=== PATIENT | male | born 1995 | race Caucasian/White ===

== ENCOUNTER 2020-06-15 10:14 | Emergency (ER) | payer BC, SELFPAY ==
[2020-06-15 10:26] VITALS: BP 138/68; PULSE 78; RESP 16; TEMP 36.4; O2SAT 100
--- NOTE | 2020-06-15 10:41 | ED.GENADULT ---
HPI - General Adult General Chief complaint: Urogenital-Male Stated complaint: UTI Time Seen by Provider: 06/15/20 10:42 Source: patient Mode of arrival: ambulatory Limitations: no limitations History of Present Illness HPI narrative: 24-year-old male patient presents to the [facility] with complaints of urinary symptoms x 4 days. Patient states that he was diagnosed with a UTI at [facility] on 1220 and was given Bactrim for 3 days. Patient states that his symptoms went away however they returned about 4 days ago. Patient complains of burning with urination, and urgency and frequency. Patient states he does not have any concerns for STDs because he is in a monogamous relationship and they do use condoms at times. Patient denies any fevers, body aches or chills. Denies any nausea, vomiting or diarrhea. Denies any low back pain or abdominal pain. Patient states at times he does have pain to the testicles but it is not constant. Related Data Allergies Allergy/AdvReac Type Severity Reaction Status Date / Time No Known Allergies Allergy Mild Verified 06/15/20 10:41 Review of Systems Review of Systems: Narrative: CONSTITUTIONAL: Denies fever, chills, or sweats. EYES: Denies visual changes, redness, or discharge. ENT: Denies rhinorrhea, congestion, sore throat, or otalgia. CARDIOVASCULAR: Denies chest pain, palpitations, or edema. RESPIRATORY: Denies cough or dyspnea. GASTROINTESTINAL: Denies abdominal pain, nausea, vomiting, or diarrhea. GENITOURINARY: Positive dysuria, denies hematuria. Positive urgency and frequency x4 days SKIN: Denies rash or itching. MUSCULOSKELETAL: Denies back pain, joint pain, or myalgia. NEUROLOGIC: Denies headache, numbness, or weakness. PSYCHIATRIC: Denies anxiety or depression. [facility] Past Medical History Medical History (Updated 06/15/20 @ 10:53 by SHANE Babin) Epilepsy Surgical History Surgical History (Updated 06/15/20 @ 10:42 by SHANE Babin) Hx of tonsillectomy Social History Social History Gender identity (if verbalized by the patient): Male Comments At the time of my signature I agree with nursing past medical history, surgical, social, and family history. There is no relevant family history pertinent to the presenting complaint. Exam Narrative: Exam Narrative: GENERAL: Well-appearing, well-nourished, and in no acute distress. HEAD: Normocephalic, atraumatic. EYES: PERRLA and EOMI. ENT: Nares clear, no rhinorrhea or epistaxis. Mucous membranes moist. NECK: Supple. No lymphadenopathy CHEST: Clear to auscultation. No respiratory distress. HEART: Regular rate and rhythm. No murmur heard. Normal peripheral pulses. ABDOMEN: Soft, nontender, nondistended, normal active bowel sounds. No CVA tenderness on percussion. EXTREMITIES: Normal range of motion. No edema. SKIN: Warm, dry, no rash. NEURO: No focal deficits. Alert and oriented x3. Course Vital Signs Vital signs: Vital Signs Temperature 36.4 C 06/15/20 10:26 Pulse Rate 78 06/15/20 10:26 Respiratory Rate 16 06/15/20 10:26 Blood Pressure 138/68 06/15/20 10:26 Pulse Oximetry 100 06/15/20 10:26 Temperature 36.4 C 06/15/20 10:26 Pulse Rate 78 06/15/20 10:26 Respiratory Rate 16 06/15/20 10:26 Blood Pressure 138/68 06/15/20 10:26 Pulse Oximetry 100 06/15/20 10:26 Vital signs reviewed The patient has been informed that they may have pre-hypertension or Hypertension based on a BP reading in the department. I recommend that the patient call the primary care provider listed on their discharge instructions or a physician of their choice this week to arrange follow up for further evaluation of possible pre-hypertension or Hypertension Medical Decision Making Differential Diagnosis Differential Diagnosis: Differential diagnosis: Uncomplicated lower UTI, uncomplicated UTI, polynephritis, penile trauma,balanopo
== END 2020-06-15 11:08 | disposition home or self-care (01) ==
PROVIDERS: Emergency Provider Nurse Practitioner Family; PCP Internal Medicine
DX: R30.0 Dysuria (principal)
CPT/HCPCS: 81003; 87086; 99213; G0463

== ENCOUNTER → 2020-12-06 13:46 | Outpatient (CLI) | payer BC, SELFPAY ==
--- NOTE | ~2020-12-06 | CT_ITS ---
EXAMINATION: CT abdomen pelvis wo con DATE: 12/06/2020 14:01 INDICATION: Chronic prostatitis. Urinary frequency. TECHNIQUE: Computed tomography (CT) of the abdomen and pelvis was performed without intravenous contr ast. Automated exposure control and iterative reconstruction technique were employed. The dose-length product was 403.65 mGy-cm. COMPARISON: None. FINDINGS: The visualized portions of the lung bases are clear without pneumonia or pleural effusion. The heart size is normal. No pericardial effusion. The gallbladder, spleen, pancreas, adrenal glands are normal. There is a 2 mm stone in right kidney. There is an anastomosis in the sigmoid colon. Ther e are no dilated loops of bowel. The appendix is normal. There are no pathologically enlarged lymph n odes. There is no free intraperitoneal fluid. The prostate is mildly enlarged. There is a benign bone island in right ilium. IMPRESSION: 1. Mildly enlarged prostate. Reviewed, dictated and finalized at location A.
== END ==
PROVIDERS: Visit Provider Urology
DX: N41.1 Chronic prostatitis (principal)
CPT/HCPCS: 74176

== ENCOUNTER 2021-03-04 15:00 | Emergency (ER) | payer BC, SELFPAY ==
[2021-03-04 15:18] VITALS: BP 135/71; PULSE 58; RESP 16; TEMP 36.4; O2SAT 100
--- NOTE | 2021-03-04 15:59 | ED.MALEGU ---
HPI - Male Genitourinary General Chief complaint: Urogenital-Male Stated complaint: POS UTI Source: patient and RN notes reviewed Limitations: no limitations History of Present Illness HPI Narrative: The patient, followed by urology in the past, presents with urinary symptoms. 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 He finished a course of antibiotics and felt fine for couple days but now has 1/2-week history of typical urinary frequency and dysuria. Denies discharge, rash, urgency; he would like STD testing as he does not recall prior results[and believes onset may have occurred with anal intercourse with his spouse a year ago]. Next steps planned by urology include cystoscopy and symptomatic treatment with Flomax, etc. Patient advised to follow-up with urology Related Data Allergies Allergy/AdvReac Type Severity Reaction Status Date / Time amoxicillin AdvReac Nausea Verified 03/04/21 15:44 Review of Systems Review of Systems: General/Constitutional: No weight loss,fever Eyes: N0: Redness,discharge Ears/Nose/Throat: No: Epistaxis,ear discharge Respiratory: Denies: Hemoptysis Gastrointestinal: No Vomiting, Bleeding-rectal Skin: No Lumps, eruption Neurologic: No Focal Weakness,Sz Hematologic: Denies: Petechiae/Purpura Psychiatric: No: Suicida ideationl All Other Systems: Reviewed and Negative [facility] Past Medical History Medical History (Updated 03/06/21 @ 11:03 by Harry Berrios MD) Epilepsy Surgical History Surgical History (Updated 06/15/20 @ 10:42 by SHANE Babin) Hx of tonsillectomy Social History Social History (Updated 01/17/21 @ 14:36 by Sandi Zaidi) Smoking status: Never smoker Alcohol intake: never Substance use: never Gender identity (if verbalized by the patient): Male Comments At time of signature, agree with nursing past medical, surgical, social and family history. There is no relevant family history pertinent to the presenting complaint Exam Narrative: General Appearance: Well appearing, Conjunctiva clear Mouth/Throat: Normal appearing, Normal lips, Supple Respiratory: Airway patent, No respiratory distress Cardiovascular: RRR GI-: Soft, Non-tender, bilateral descended testicles, no inguinal hernia, circumcised phallus Musculoskeletal: Full ROM Skin: Warm, Dry Neurological: A&O x3, CN II-X intact Psychiatric: Normal mood, Normal affect Course Vital Signs Vital signs: Vital Signs Temperature 97.5 F L 03/04/21 15:18 Pulse Rate 58 L 03/04/21 15:18 Respiratory Rate 16 03/04/21 15:18 Blood Pressure 135/71 03/04/21 15:18 Pulse Oximetry 100 03/04/21 15:18 Temperature 97.5 F L 03/04/21 15:18 Pulse Rate 58 L 03/04/21 15:18 Respiratory Rate 16 03/04/21 15:18 Blood Pressure 135/71 03/04/21 15:18 Pulse Oximetry 100 03/04/21 15:18 MDM - Male Genitourinary Lab Data Labs: Lab Results 03/04/21 03/04/21 Range/Units 15:36 15:37 C.trachomatis RNA (TMA) Pending N.gonorrhoeae RNA (TMA) Pending T. vaginalis Amp RNA Pending Urine Glucose Negative Reference Range: Negative Urine Bilirubin Negative Reference Range: Negative Urine Ketone Negative Reference Range: Negative Urine Specific [place] 1.015 Reference Range:1.001-1.035 Urine Blood Negative Reference Range: Negative * * Urine pH 7.0
== END 2021-03-04 16:08 | disposition home or self-care (01) ==
PROVIDERS: Emergency Provider Emergency Medicine; PCP Internal Medicine
DX: R30.0 Dysuria (principal); R35.0 Frequency of micturition
CPT/HCPCS: 81003; 87491; 87591; 87661; 99213; G0463

== ENCOUNTER 2021-12-01 15:29 | Emergency (ER) | payer BC, SELFPAY ==
--- NOTE | 2021-12-01 15:32 | ED.MALEGU ---
HPI - Male Genitourinary General Chief complaint: Urogenital-Male Stated complaint: PENIS PAIN/SWELLING/ITCHING Time Seen by Provider: 12/01/21 15:31 Source: patient Mode of arrival: ambulatory Limitations: no limitations History of Present Illness HPI Narrative: Mr. Levy is a 26-year-old male patient presenting to the clinic today with complaints of penis swelling, itching, pain with urination. He reports 2 days ago he was masturbating and was unable to reach climax and his penis became very swollen. States that some of that swelling has gone down however he has had some itching and burning with urination since. States that 5 months ago he had to be put on doxycycline for what he thought was prostatitis per his urologist he denies having any new sexual partners and has not had intercourse for approximately 2 months due to his being out of town for work. He denies any penile discharge or any known blood in his semen . He denies any rectal pain, fatigue, fevers, chills, nausea, vomiting, or diarrhea. States he is have been having a hard time voiding as it feels as though he has an erected penis. Related Data Home Medications Medication Instructions Recorded Confirmed fluoxetine 40 mg capsule 1 cap PO DAILY 12/01/21 12/01/21 Allergies Allergy/AdvReac Type Severity Reaction Status Date / Time amoxicillin AdvReac Nausea Verified 12/01/21 15:35 Review of Systems Review of Systems: Pertinent positives per HPI. Patient denies any fever, chills, headache, visual changes, dizziness, cough, runny nose, sore throat, shortness of breath, chest pain, palpitations, nausea, vomiting, diarrhea, constipation, abdominal pain. [facility] Past Medical History Medical History Epilepsy Surgical History Surgical History Hx of tonsillectomy Social History Social History Smoking status: Never smoker Alcohol intake: never Substance use: never Gender identity (if verbalized by the patient): Male Comments At the time of my signature, I reviewed and agree with the nursing past medical, surgical, social, and family history. There is no relevant family history pertinent to the patient complaint. Exam Narrative: General: Well-developed, well nourished, in no apparent distress. Head: Normocephalic, atraumatic. Cardio: Regular rate and rhythm, s1 and s2 normal, no murmur appreciated. Resp: Clear to auscultation bilaterally, no rhonchi, rales, wheezing or rubs. Abdomen: Soft, pliable, bowel sounds present in all quadrants, non-tender to palpation, no organomegly, no CVAT tenderness. : Normal-appearing genitalia, no lesions or sores noted, nontender to palpation over the phallus however he does have tenderness to palpation over the glans penis near the urethra, nontender to palpation over the epididymitis or testicles, no testicular mass palpable. No inguinal hernia, mild redness to the opening of the urethra without discharge Course Course Emergency Course: Portions of this record may have been created with voice recognition software. Level of Care: Express Care Visit Vital Signs Vital signs: Vital Signs Temperature 37.3 C 12/01/21 15:35 Pulse Rate 71 12/01/21 15:35 Respiratory Rate 12 12/01/21 15:35 Blood Pressure 135/77 12/01/21 15:35 Pulse Oximetry 100 12/01/21 15:35 Oxygen Delivery Room Air 12/01/21 15:35 Temperature 37.3 C 12/01/21 15:35 Pulse Rate 71 12/01/21 15:35 Respiratory Rate 12 12/01/21 15:35 Blood Pressure 135/77 12/01/21 15:35 Pulse Oximetry 100 12/01/21 15:35 Oxygen Delivery Room Air 12/01/21 15:35 Vital signs reviewed MDM - Male Genitourinary MDM Narrative Medical decision making narrative: At the time of visit patient is resting comfortably on the exam table. UA i
[2021-12-01 15:35] VITALS: BP 135/77; PULSE 71; RESP 12; TEMP 37.3; O2SAT 100
== END 2021-12-01 16:10 | disposition home or self-care (01) ==
PROVIDERS: Emergency Provider Nurse Practitioner Family; PCP Internal Medicine
DX: N34.2 Other urethritis (principal)
CPT/HCPCS: 81003; 87491; 87591; 87661; 99213; G0463

== ENCOUNTER 2022-07-09 15:45 | Outpatient (CLI) | payer BC, SELFPAY ==
[2022-07-09 15:57] LABS: Basophils Percent Auto 0.3 % (0.2-1.2); Eosinophils Absolute Auto 0.1 K/mm3 (0-0.3); Eosinophils Percent Auto 1.6 % (0-4.4); Hematocrit 48.7 % (42.0-52.0); Hemoglobin 16.3 g/dL (14.0-18.0); Immature Granulocyte Absolute 0.01 K/mm3 (0.00-0.031); Immature Granulocyte Percent A 0.1 % (0-0.5); Lymphocytes Absolute Auto 1.31 K/mm3 (0.9-3.2); Lymphocytes Percent Auto 17.6 % (18.3-44.2); Mean Corpuscular HGB Conc 33.5 g/dl (32-36); Mean Corpuscular Volume 86.7 fl (80-100); Mean Platelet Volume 11.7 fl (7.4-10.4); Monocytes Percent Auto 12.8 % (2.6-8.5); Neutrophils Percent Auto 67.6 % (45.5-73.1); Platelet Count Result 160 k/mm3 (150-375); Red Blood Count 5.62 M/mm3 (4.6-6.20); Red Cell Distribution Width 11.9 % (11.5-14.5); White Blood Count 7.4 K/mm3 (4.5-10.0)
[2022-07-09 16:38] LABS: Alanine Aminotransferase 38 U/L (6-50); Albumin Level 4.1 g/dL (3.5-5.1); Alkaline Phosphatase 44 U/L (38-126); Anion Gap 3 mmol/L (8-16); Aspartate Amino Transferase 31 U/L (17-59); Bilirubin,Total 0.6 mg/dL (0.2-1.3); Blood Urea Nitrogen 19 mg/dL (9-20); Calcium 9.2 mg/dL (8.4-10.2); Carbon Dioxide 34 mmol/L (22-30); Chloride 100 mmol/L (98-107); Estimated Glomerular Filt Rate > 60; Glucose 97 mg/dL (65-110); Lactate Dehydrogenase 157 U/L (120-246); Potassium 4.1 mmol/L (3.4-5.0); Sodium 137 mmol/L (137-145)
[2022-07-09 17:45] LABS: Folic Acid 11.5 ng/mL (2.76->20)
== END 2022-07-09 15:46 | disposition home or self-care (01) ==
LOC: ANHLAB 15:46
PROVIDERS: PCP Internal Medicine; Visit Provider Internal Medicine Hematology & Oncology
DX: D72.819 Decreased white blood cell count, unspecified (principal)
CPT/HCPCS: 36415; 80053; 82607; 82728; 82746; 83615; 85025; 86038

== ENCOUNTER 2022-08-15 12:28 | Outpatient (CLI) | payer BC, SELFPAY ==
--- NOTE | ~2022-08-15 | US_ITS ---
Abdominal Sonogram: Real-time sonographic imaging of the abdomen was performed. Clinical History: Leukopenia Findings: The liver appears normal with no evidence of mass lesion or bile duct dilatation. Main por basilio vein demonstrates normal direction of flow. The spleen is normal in size without evidence of foca l lesion. The gallbladder is well distended, and appears normal with no evidence of gallstone or wal l thickening. The common bile duct measures 5 mm. The visualized pancreas, aorta, and IVC are unrema rkable. The right kidney measures 10.9 cm in length and the left kidney measures 10.3 cm. There is no hydronephrosis or renal calculus. Impression: Unremarkable abdominal ultrasound. Reviewed, dictated and finalized at location . [employer] CHAIR Impression: Unremarkable abdominal ultrasound.
== END 2022-08-15 12:29 | disposition home or self-care (01) ==
PROVIDERS: PCP Internal Medicine; Visit Provider Internal Medicine Hematology & Oncology
DX: D72.819 Decreased white blood cell count, unspecified (principal)
CPT/HCPCS: 76700

== ENCOUNTER 2023-05-16 09:51 | Emergency (ER) | payer BC, SELFPAY ==
[2023-05-16 10:09] VITALS: BP 138/97; PULSE 83; RESP 16; TEMP 37; O2SAT 100
--- NOTE | 2023-05-16 10:41 | ED.URI ---
HPI - URI/Sore Throat General Chief Complaint: Upper Respiratory Infection Stated Complaint: Sinus Infection;Sore throat Time Seen by Provider: 05/16/23 10:42 Source: patient, RN notes reviewed and old records reviewed Mode of arrival: ambulatory Limitations: no limitations History of Present Illness HPI Narrative: 27 year old male who presents to [facility] with complaints of 2 week duration of a sore throat, cough, sinus congestion with pressure with drainage and now he has lost his voice. Patient reports that he has had thick yellow nasal drainage with some blood noted in drainage. He states that he has some increased cough and has some discomfort with cough which is 6/10, Patient reports that he has taken some Ibuprofen reports no fevers, chills, or bodyaches MD elicited complaint: cough, sore throat, rhinorrhea and nasal congestion Onset (ago): week(s) (2) Consistency: progressively worsening Pain scale (0-10): 6 Description of mucous: yellow and bloody Treatments prior to arrival: ibuprofen Related Data Home Medications Medication Instructions Recorded Confirmed fluoxetine 60 mg tablet mg 05/16/23 Allergies Allergy/AdvReac Type Severity Reaction Status Date / Time amoxicillin AdvReac Nausea Verified 12/01/21 15:35 Review of Systems Review of Systems: CONSTITUTIONAL: Denies malaise, chills, sweats, or fever. EYES: Denies visual changes, redness, or discharge. ENT: Reports rhinorrhea, congestion, sinus pain, no otalgia and positive for sore throat. CARDIOVASCULAR: Denies chest pain, palpitations, or edema. RESPIRATORY: Reports cough.? Denies dyspnea. GASTROINTESTINAL: Denies abdominal pain, nausea, vomiting, diarrhea SKIN: Denies rash or itching. MUSCULOSKELETAL: Denies myalgia. NEUROLOGIC: Denies headache. All systems reviewed & are unremarkable except as noted in HPI and below PMFSH Past Medical History Medical History (Updated 05/18/23 @ 11:41 by Eugenie Casillas NP) Epilepsy resolved as child Surgical History Surgical History Hx of tonsillectomy Social History Social History Smoking status: Never smoker Alcohol intake: never Substance use: never Gender identity (if verbalized by the patient): Male Comments At time of signature, agree with nursing past medical, surgical, social and family history. There is no relevant family history pertinent to the presenting complaint Exam Narrative: GENERAL: Well-appearing, well-nourished, and in no acute distress. HEAD: Normocephalic EYES: PERRLA, conjunctivae clear ENT: Nares clear, turbinates edematous and erythematous, yellow thick with blood tinged discharge. Mucous membranes moist. TM pearly menon with dull light reflex bilaterally; no tragal tenderness. Oropharynx erythematous without lesions. Tonsils not present and throat without exudate, no drooling, no hoarseness, no trismus, uvula midline.post nasal discharge NECK: Supple. No lymphadenopathy CHEST: Clear to auscultation, breath sounds equal. No wheezing, rhonchi, rales, or stridor. No respiratory distress, speaks in full sentences.cough [id number]% on room air HEART: Regular rate and rhythm. No murmur heard. SKIN: Warm, dry, no rash. NEURO: Alert and oriented x3. PSYCH: Normal mood and affect Course Course Emergency Course: Patient is aware of diagnosis, understands and agrees to treatment plan.? Anticipatory guidance given.? Patient agrees to follow-up as directed and is aware of reasons to seek care at the emergency department. Portions of this record may have been created with voice recognition software Level of Care: Express Care Visit Vital Signs Vital signs: Vital Signs Temperature 37.0 C 05/16/23 10:09 Pulse Rate 83 05/16/23 10:09 Respiratory Rate 16 05/16/23 10:09 Blood Pressure 138/97 H 05/16/23 10:09
== END 2023-05-16 11:13 | disposition home or self-care (01) ==
PROVIDERS: Emergency Provider Registered Nurse; PCP Internal Medicine
DX: J01.40 Acute pansinusitis, unspecified (principal); Z20.822 Contact with and (suspected) exposure to COVID-19
CPT/HCPCS: 87081; 87426; 87804; 87880; 99213; C9803; G0463

== ENCOUNTER 2023-08-14 08:46 | Outpatient (CLI) | payer BC, SELFPAY ==
--- NOTE | ~2023-08-14 | MR_ITS ---
EXAMINATION: MR knee LT wo con DATE: 08/14/2023 09:39 INDICATION: Left knee pain TECHNIQUE: Magnetic resonance imaging (MRI) of the left knee was performed without intravenous contra st. Sequences included coronal PD-weighted FSE, coronal PD-weighted FS FSE, sagittal T2-weighted FSE , sagittal PD-weighted FS FSE and axial PD weighted fat saturated FSE. COMPARISON: None. FINDINGS: Medial compartment: Complex medial meniscal tear which includes a displaced bucket-handle flap which extends anteroposter iorly across the medial side of the intercondylar eminence. Additional longitudinal horizontal tear p eileen extending to the inferior articular surface of the the remaining nondisplaced body and posterior horn with additional small secondary tear planes extending to the inferior articular surface at the posterior horn. Articular cartilage is normal. Lateral compartment: Lateral meniscus is normal. Articular cartilage is normal. Patellofemoral compartment: Articular cartilage is normal. Ligaments and tendons: Anterior and posterior cruciate ligaments are normal. The medial collateral ligament and fibular virgie ateral ligament complex are normal. The extensor mechanism is normal. The visualized medial and later al hamstring tendons as well as the iliotibial band are normal. Fluid: Minimal joint effusion with mild synovitis at the suprapatellar pouch. No loose osteochondral bodies identified. Small Escoto's cyst. There is nonloculated edema posterior to the knee tracking craniocaud ally along the periphery of the gastrocnemius muscles, medial greater than lateral. Osseous/other: Normal marrow signal. No fracture or pathologic marrow replacing process. IMPRESSION: 1. Complex medial meniscal tear including a laterally displaced bucket-handle meniscal flap. Reviewed, dictated and finalized at location B. 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 Complex medial meniscal tear including a laterally displaced bucket-handle m eniscal flap.
== END 2023-08-14 08:47 | disposition home or self-care (01) ==
LOC: ANHIMG 08:47
PROVIDERS: PCP Emergency Medicine; Visit Provider Emergency Medicine
DX: S83.232A Complex tear of medial meniscus, current injury, left knee, initial encounter (principal); S83.252A Bucket-handle tear of lateral meniscus, current injury, left knee, initial encounter; X58.XXXA Exposure to other specified factors, initial encounter
CPT/HCPCS: 73721

== ENCOUNTER 2023-09-15 02:00 | Day surgery (SDC) | payer BC, SELFPAY ==
[2023-09-07 11:07] VITALS: BMI 24.7
--- NOTE | 2023-09-07 11:11 | PC.NURSE ---
Report to the Outpatient Waiting Room, entrance under the green pavilion located off [address], at time 1130 on date 09/15/23. Planned Procedure Time: 1330. Time changes happen often and if your time is changed the preop area will call you the afternoon before. - You and your visitor will be asked to self-screen and do not enter if you have any COVID symptoms. - A mask is optional within the hospital at this time. Patients may have clear liquids (water, carbonated beverages, clear teas, apple juice) until 3 hours prior to surgery with a maximum of 20 ounces. - No food from midnight until time of surgery Take the following medications with a SIP of water the morning of surgery: FLUOXETINE DO NOT STOP ANY OF YOUR OTHER PRESCRIPTION MEDICATIONS PRIOR TO SURGERY ?EXCEPT THE FOLLOWING Medications to discontinue per physician: N/A Date to take last dose: N/A Please no make-up, nail tajik, hairspray, perfume, deodorant, or body powder the day of surgery. No jewelry (including any body piercings) or valuables the day of surgery, leave them at home. Please take a shower or bath the night before, or the morning of, surgery with an antibacterial soap. Wear comfortable, loose fitting clothing. - Jewelry must be removed prior to entering the operating room. Rings and piercings that are not removed may be cut off. - The hospital will not accept responsibility for valuables. - Please leave all valuables, including medications, at home the day of surgery. If you are going home after surgery, a licensed driver sales must drive you home. - NO public transportation without another adult if you receive anesthesia. - We recommend that an adult stay with you for 24 hours following discharge. - We also recommend that you do not drive, make important decision, drink alcoholic beverages, or take any drugs that were not prescribed by your health care provider for at least 24 hours after your discharge time. Follow any additional instructions given to you from your surgeon. If you or anyone in your household have experienced Covid symptoms in the past week, please notify your surgeon or the nurse liaison at the phone number below for possible testing. Telephone instructions given to MERARI CRUM and asked if any additional questions and then verbalized understanding. Patient advised to call surgeon office or pre surgery nurse liaison [phone] if any additional questions.
[2023-09-15] VITALS (9 sets, daily range): BP systolic 125–156; BP diastolic 52–92; PULSE 71–103; RESP 10–16; TEMP 36.3–37.2; O2SAT 100
--- NOTE | 2023-09-15 07:21 | WPDHPUPDATE1 ---
History and Physical Update Update Date/Time: 09/15/23 07:21 History and Physical has been reviewed, including an updated exam of the patient. There are NO changes in the patient's condition. Risks, benefits, and alternatives have been discussed and questions answered. Patient agrees to proceed with procedure.
--- NOTE | 2023-09-15 11:56 | P.PNAN_ITS ---
Anes - Initial Pre Proc Eval Procedure: Operation Date: 09/15/23 13:30 Proposed Procedures p Left Knee Arthroscopy, Meniscus Repair Versus Meniscectomy - Chi Orourke MD Date/Time: 09/15/23 11:56 Surgeon: Chi Orourke MD Pre Op Diagnosis: left medial meniscus tear Patient Data Age: 28 Gender: M Height: 1.87 m Weight: 86.2 kg Allergies Allergy/AdvReac Type Severity Reaction Status Date / Time amoxicillin AdvReac Nausea Verified 09/07/23 11:06 Home Medications Medication Instructions Recorded Confirmed Type fluoxetine 60 mg tablet 60 mg PO DAILY 08/05/23 09/07/23 History chlorhexidine gluconate 4 % 1 applic topical DAILY #237 mL 09/08/23 Rx topical liquid (Hibiclens) Patient hx anesthesia problems: none Family hx anesthesia problems: none Results Review: All pre-operative results and documents have been reviewed as part of the pre- operative evaluation. PMFSH Past Medical History Medical History Epilepsy resolved as child Surgical History Surgical History Hx of tonsillectomy Social History Social History Smoking status: Former smoker Tobacco type: cigarettes Additional smoking assessment comments: AGE 19 ONLY Alcohol intake: current Drinks per week: 4 Substance use: never Substance use type: does not use Do You Feel Safe in your Home?: Yes Lack of Transportation: No Lack of Food: Never True Current Housing: I Have Housing Concerned About Future Housing: No Difficulty Paying Gas/Electric Bills: No Difficulty Paying for Meds: No Currently Unemployed: No Education: Associate Degree Difficulty w/ Childcare or Family Care: No Living arrangements: alone Gender identity (if verbalized by the patient): Male Spiritual care concerns: No Anes - Eval Final PreProcedure Day of Procedure 09/15/23 11:56 Patient weight: normal Heart: regular rate and rhythm Lungs: clear to auscultation Airway: Mallampati scale class II Neurological: alert and oriented Last oral intake: >/= 8 hours ASA classification: II Emergent: no Anesthetic plan: proceed Anesthesia type and monitoring: general and standard monitoring Results Review: All pre-operative results and documents have been reviewed as part of the pre- operative evaluation. Informed Consent: The patient's anesthetic plan and its attendant risks and benefits were discussed with the patient/family/POA. Questions were solicited and answers provided to the satisfaction of the patient/family/POA.
[2023-09-15] MEDS: CELECOXIB 200 MG CAPSULE PO (12:00)
[2023-09-15] MEDS: ACETAMINOPHEN 500 MG TABLET 1000 MG PO (12:00)
[2023-09-15] MEDS: LACTATED RINGERS 1,000 ML 30 ML IV CONT ×2 (12:00→15:24)
[2023-09-15] MEDS: ceFAZolin 2 GM/D5W 50 ML 2 GM/50 ML BAG IVPB (13:01)
[2023-09-15] MEDS: BUPivacaine HCL 0.5% 10 ML AMP 30 ML INFILTRATE (13:43)
--- NOTE | 2023-09-15 15:37 | P.OP_ITS ---
Procedure Note - Detailed Date of Procedure 09/15/23 Pre-op Diagnosis left medial meniscus tear Post-op Diagnosis Same Procedure Performed REPAIR OF MEDIAL MENISCUS, MINOR SYNOVECTOMY Surgeon Chi Orourke MD Anesthesia General Description of Procedure PATIENT WAS TAKEN TO THE OR. LEFT LEG WAS PREPPED AND DRAPED STERILE. TROCARS WERE PLACED IN THE USUAL FASHION. CAMERA WAS INTRODUCED. THERE WAS CHONDROMALACIA TO THE PATELLA FEMORAL JOINT. THERE WAS A LOT OF SYNOVITIS IN ALL COMPARTMENTS. THE MEDIAL COMPARTMENT SHOWED MILD CHONDROMALACIA TO THE MEDIAL FEMORAL CONDYLE. A SHAVER WAS USED TO PREFORM A CHONDROPLASTY. THERE WAS A COMPLEX MEDIAL MENISCUS TEAR WITH A LARGE BUCKET HANDLE COMPONENT. THE TEA R WAS REDUCED. THE TEAR WAS IN THE RED ZONE. A SHAVER WAS USED TO D?BRIDE THE BACK EDGE OF THE TEAR TILL THERE WAS BLEEDING TISSUE. 5 ARTHREX FIBERSTICH IMPLANTS WERE USED TO REPAIR THE MENISCUS. THE TEAR WAS STABLE. THE ACL WAS INTACT. THE LATERAL MENISCUS WAS NOT TORN. THE LAT COMPARTMENT HAD NO CHONDROMALACIA. THE PATELLO FEMORAL JOINT WAS TRACKING WELL. THERE WAS NO CHONDROMALACIA. SYNOVECTOMY WAS PREFORMED IN THE SUPERIOR MEDIAL COMPARTMENT. THE WOUNDS WERE APPROXIMATED WITH 4.0 NYLON. STERILE DRESSING WAS APPLIED. PATIENT WAS EXTUBATED. Estimated Blood Loss 5 Complications No immediate complications Condition Stable Disposition PACU
== END 2023-09-15 17:20 | disposition home or self-care (01) ==
PROVIDERS: PCP Emergency Medicine; Visit Provider Orthopaedic Surgery
PROC: (CPT 29870; principal; 2023-09-15 13:30)
DX: S83.232A Complex tear of medial meniscus, current injury, left knee, initial encounter (principal); M65.862 Other synovitis and tenosynovitis, left lower leg; M22.42 Chondromalacia patellae, left knee; X50.0XXA Overexertion from strenuous movement or load, initial encounter
CPT/HCPCS: 29881; A9270; J0690; J1100; J2250; J2405; J2704; J3010; J7120

== ENCOUNTER 2025-02-25 09:15 | Outpatient (CLI) | payer BC, SELFPAY ==
--- OUTSIDE RECORDS SUMMARY | 2025-02-25 09:20 | XMS_ITS | Clinical Summary ---
Author Organization [facility] Address [facility] [place] [address] Phone Care Team Providers Care Burnt Lime Drawer Name Role Phone Ed Siegel MD Primary Care Provider [phone] Allergies No known active allergies Medications No known medications Active Problems No known active problems Social History Tobacco Use Types Packs/Day Years Used Date Smoking Tobacco: Never Smokeless Tobacco: Never Alcohol Use Standard Drinks/Week Comments Yes 0 (1 standard drink = 0.6 oz pur e alcohol) Sex and Gender Information Value Date Recorded Sex Assigned at Not on file Legal Sex Male 10:52 AM SALES & SERVICE ASSOCIATE Gender Identity Not on file Sexual Orientation Not on file Last Filed Vital Signs Vital Sign Reading Time Taken Comments Blood Pressure 128/84 05/16/2020 12:46 PM SALES & SERVICE ASSOCIATE Pulse 81 05/16/2020 12:46 PM SALES & SERVICE ASSOCIATE Temperature 37.2 C (99 F) 05/16/2020 12:46 PM SALES & SERVICE ASSOCIATE Respiratory Rate - - Oxygen Saturation 97% 05/16/2020 12:46 PM SALES & SERVICE ASSOCIATE Inhaled Oxygen Concentration - - Weight 74.8 kg (165 lb) 05/16/2020 12:46 PM SALES & SERVICE ASSOCIATE Height 188 cm (6' 2) 05/16/2020 12:46 PM SALES & SERVICE ASSOCIATE Body Mass Index 21.18 05/16/2020 12:46 PM SALES & SERVICE ASSOCIATE Plan of Treatment Health Maintenance Due Date Last Done Comments Hepatitis C Virus (HCV) Screening 1996 SARS-COV-2 Immunization ( season) 2024 02/22/2021, 01/30/2021 Influenza Immunization (#1) 2025 04/06/2019 Respiratory Syncytial Virus (RSV) Immunization (Adult) (1 - 1-dose 75+ series) 2071 Hepatitis B Immunization Completed 997, 1996, 1996 DTaP/Tdap/Td Immunization Discontinued 2006, 09/20/2001, 11/27/1997, Additional history exists TdaP Immunization Completed 12/10/2006 Meningococcal Immunization (ACWY) Aged Out 01/09/2010 No longer eligible based on patient's age to complete this topic Human Papillomavirus (HPV) Immunization Completed 08/24/2012, 04/30/2012, 02/27/2012 Pneumococcal Immunization Combined Aged Out No longer eligible based on patient's age to complete this topic Rotavirus Immunization Aged Out No lo nger eligible based on patient's age to complete this topic Insurance [place], [place] [id number] [address] Care Teams Burnt Lime Drawer Relationship Specialty Start Date End Date Ed Siegel MD PCP - General Internal Medicine 05/16/20
--- OUTSIDE RECORDS SUMMARY | 2025-02-25 09:20 | XMS_ITS | Clinical Summary ---
Author Organization [facility] Paddy Knoxlauren Address [facility] [place] [address] Care Team Providers Care Manager Test Name Role Phone Ed Siegel MD Primary Care Provider [phone] Allergies No known active allergies Medications FLUoxetine (PROzac) 60 mg tablet Take 60 mg by mouth daily. 06/23/2022 Active Active Problems No known active problems Family History Medical History Relation Name Comments No Known Problems Father No Known Problems Mother Relation Name Status Comments Father Alive Mother Alive Social History Tobacco Use Types Packs/Day Years Used Date Smoking Tobacco: Never Smokeless Tobacco: Never Tobacco Cessation:Counseling Given: Not Answered Alcohol Use Standard Drinks/Week Comments Yes 0 (1 standard drink = 0.6 oz pur e alcohol) socially Sex and Gender Information Value Date Recorded Sex Assigned at Not on file Legal Sex Male 2:17 PM CDT Gender Identity Not on file Sexual Orientation Not on file Last Filed Vital Signs Vital Sign Reading Time Taken Comments Blood Pressure 120/78 07/24/2022 4:10 PM FORM SETTER SUPERVISOR Pulse 66 07/24/2022 4:10 PM FORM SETTER SUPERVISOR Temperature 36.5 C (97.7 F) 07/24/2022 4:10 PM FORM SETTER SUPERVISOR Respiratory Rate 20 07/24/2022 4:10 PM FORM SETTER SUPERVISOR Oxygen Saturation 100% 07/24/2022 4:10 PM FORM SETTER SUPERVISOR Inhaled Oxygen Concentration - - Weight 73.8 kg (162 lb 9.6 oz) 07/24/2022 4:10 P M FORM SETTER SUPERVISOR Height 188 cm (6' 2) 07/09/2022 3:01 PM FORM SETTER SUPERVISOR Body Mass Index 20.88 07/09/2022 3:01 PM FORM SETTER SUPERVISOR Plan of Treatment Health Maintenance Due Date Last Done Comments DTAP/TDAP/TD VACCINES (1 - Tdap) 2015 HEPATITIS B VACCINES (1 of 3 - 19+ 3-dose series) 07/16 HPV VACCINES (1 - 3-dose SCDM series) 2023 INFLUENZA VACCINE (#1) 2025 Insurance [facility] Care Teams Manager Test Relationship Specialty [place] [address] [place] [id number] PCP - General Internal Medicine 07/09/22
[2025-02-25 10:53] LABS: Alanine Aminotransferase 36 U/L (6-50); Albumin Level 4.3 g/dL (3.5-5.1); Alkaline Phosphatase 43 U/L (38-126); Anion Gap 8 mmol/L (4-12); Aspartate Amino Transferase 34 U/L (17-59); Bilirubin,Total 0.9 mg/dL (0.2-1.3); Blood Urea Nitrogen 27 mg/dL (9-20); Calcium 9.4 mg/dL (8.4-10.2); Carbon Dioxide 28 mmol/L (22-30); Chloride 103 mmol/L (98-107); Cholesterol 209 mg/dL (0-200); Estimated Glomerular Filt Rate > 60; Glucose 75 mg/dL (65-110); HDL Direct 47 mg/dL; Potassium 4.0 mmol/L (3.4-5.0); Sodium 139 mmol/L (137-145); Total Protein 6.8 g/dL (6.3-8.2); Triglycerides 94 mg/dL (<150)
== END 2025-02-25 09:16 | disposition home or self-care (01) ==
LOC: ANHLAB 09:18
PROVIDERS: PCP Emergency Medicine; Visit Provider Emergency Medicine
DX: E78.5 Hyperlipidemia, unspecified (principal); E55.9 Vitamin D deficiency, unspecified; I10 Essential (primary) hypertension
CPT/HCPCS: 36415; 80053; 80061; 82306

== ENCOUNTER 2025-02-27 14:56 | Outpatient (CLI) | payer BC, SELFPAY ==
--- OUTSIDE RECORDS SUMMARY | 2025-02-27 17:52 | XMS_ITS | Clinical Summary ---
Author Organization [facility] Paddy Knoxlauren Address [facility] [place] [address] Care Team Providers Care Commissary Assistant Name Role Phone Ed Siegel MD Primary Care Provider [phone] Allergies No known active allergies Medications FLUoxetine [...] Comments Blood Pressure 120/78 07/24/2022 4:10 PM CONTAINER FILLER Pulse 66 07/24/2022 4:10 PM CONTAINER FILLER Temperature 36.5 C (97.7 F) 07/24/2022 4:10 PM CONTAINER FILLER Respiratory Rate 20 07/24/2022 4:10 PM CONTAINER FILLER Oxygen Saturation 100% 07/24/2022 4:10 PM CONTAINER FILLER Inhaled Oxygen Concentration - - Weight 73.8 kg (162 lb 9.6 oz) 07/24/2022 4:10 P M CONTAINER FILLER Height 188 cm (6' 2) 07/09/2022 3:01 PM CONTAINER FILLER Body Mass Index 20.88 07/09/2022 3:01 PM CONTAINER FILLER Plan of Treatment Health Maintenance Due Date Last Done Comments DTAP/TDAP/TD VACCINES (1 - Tdap) 2015 HEPATITIS B VACCINES (1 of 3 - 19+ 3-dose series) 07/16 HPV VACCINES (1 - 3-dose SCDM series) 2023 INFLUENZA VACCINE (#1) 2025 Insurance [facility]ADITION[facility] Care Teams Commissary Assistant Relationship Specialty [place] [address] [place] [phone] PCP - General Internal Medicine 07/09/22
--- OUTSIDE RECORDS SUMMARY | 2025-02-27 17:52 | XMS_ITS | Clinical Summary ---
Author Organization [facility] Address [address] [place] [address] Phone Care Team Providers Care Die Keeper Name Role Phone Ed Siegel MD Primary Care Provider [phone] Allergies No known active allergies Medications No [...] on file Legal Sex Male 10:52 AM CHIP BIN OPERATOR Gender Identity Not on file Sexual Orientation Not on file Last Filed Vital Signs Vital Sign Reading Time Taken Comments Blood Pressure 128/84 05/16/2020 12:46 PM CHIP BIN OPERATOR Pulse 81 05/16/2020 12:46 PM CHIP BIN OPERATOR Temperature 37.2 C (99 F) 05/16/2020 12:46 PM CHIP BIN OPERATOR Respiratory Rate - - Oxygen Saturation 97% 05/16/2020 12:46 PM CHIP BIN OPERATOR Inhaled Oxygen Concentration - - Weight 74.8 kg (165 lb) 05/16/2020 12:46 PM CHIP BIN OPERATOR Height 188 cm (6' 2) 05/16/2020 12:46 PM CHIP BIN OPERATOR Body Mass Index 21.18 05/16/2020 12:46 PM CHIP BIN OPERATOR Plan of Treatment Health Maintenance Due Date [...] patient's age to complete this topic Insurance [place], [place] [id number] [place] [address] Care Teams Die Keeper Relationship Specialty Start Date End Date Ed Siegel MD PCP - General Internal Medicine 05/16/20
--- OUTSIDE RECORDS SUMMARY | 2025-02-27 17:52 | XMS_ITS | Clinical Summary ---
Author Organization [facility] Address [address] [place] [address] Phone Care Team Providers Care Operations And Maintenance Technician Name Role Phone Nelda Puentes MD Primary Care Provider + Allergies No known active allergies Medications doxycycline (DORYX) 100 mg EC tablet Take 1 tablet (100 mg total) by mouth daily 90 tablet 04/08/2021 Active Active Problems Problem Noted Date Diagnosed Date Acute sinusitis 04/10/2021 Testicular pain 03/14/2021 Dysuria 03/14/2021 Anxiety 04/16/2019 Tic disorder 10/19/2013 Surgical History Surgery Date Site/Laterality Comments BOWEL RESECTION Medical History Medical History Date Comments Epilepsy (HCC) he has grown out of them Social History Tobacco Use Types Packs/Day Years Used Date Smoking Tobacco: Never AUDIT-C Answer Date Recorded Q1: How often do you have a drink containing alc ohol? Never 03/13/2021 Average Number of Drinks Not on file 021 Frequency of Binge Drinking Not on file 02/14 Sex and Gender Information Value Date Recorded Sex Assigned at Not on file Legal Sex Male 9:35 PM HOSPITAL FOOD SERVICE WORKER Gender Identity Not on file Sexual Orientation Not on file Obstetrics History Last Filed Vital Signs Vital Sign Reading Time Taken Comments Blood Pressure 127/78 04/10/2021 10:16 AM CDT Pulse 63 04/10/2021 10:16 AM CDT Temperature 36.2 C (97.2 F) 04/10/2021 10:16 AM CDT Respiratory Rate - - Oxygen Saturation 98% 04/22/2017 11:13 AM HOSPITAL FOOD SERVICE WORKER Inhaled Oxygen Concentration - - Weight 70.3 kg (155 lb) 04/10/2021 10:16 AM CDT Height 188 cm (6' 2) 04/10/2021 10:16 AM CDT Body Mass Index 19.9 04/10/2021 10:16 AM CDT Plan of Treatment Not on file Insurance [facility] Care Teams Operations And Maintenance Technician Relationship Specialty Start Date End Date Nelda Puentes MD [address] [place] [address] PCP - General 06/05/17
--- OUTSIDE RECORDS SUMMARY | 2025-02-27 17:52 | XMS_ITS | Clinical Summary ---
Author Organization [facility] Address [address] [place] [address] Care Team Providers Care Stacker Driver Name Role Phone None, Provider Primary Care Provider Unavaila ble Allergies No known active allergies Family History Medical History Relation Comments No Known Problems Father No Known Problems Mother Relation Status Comments Father Mother Social History Tobacco Use Types Packs/Day Years Used Date Smoking Tobacco: Never Smokeless Tobacco: Never Alcohol Use Standard Drinks/Week Comments Not Currently 0 (1 standard drink = 0.6 oz pur e alcohol) Sex and Gender Information Value Date Recorded Sex Assigned at Not on file Legal Sex Male 8:38 AM FIELD MARKETING TEAM LEADER Gender Identity Not on file Sexual Orientation Not on file Last Filed Vital Signs Vital Sign Reading Time Taken Comments Blood Pressure 142/75 06/03/2020 8:52 AM FIELD MARKETING TEAM LEADER Pulse 60 06/03/2020 8:52 AM FIELD MARKETING TEAM LEADER Temperature 36.5 C (97.7 F) 06/03/2020 8:52 AM FIELD MARKETING TEAM LEADER Respiratory Rate 16 06/03/2020 8:52 AM FIELD MARKETING TEAM LEADER Oxygen Saturation 98% 06/03/2020 8:52 AM FIELD MARKETING TEAM LEADER Inhaled Oxygen Concentration - - Weight 74.8 kg (165 lb) 06/03/2020 8:52 AM FIELD MARKETING TEAM LEADER Height 188 cm (6' 2) 06/03/2020 8:52 AM FIELD MARKETING TEAM LEADER Body Mass Index 21.18 06/03/2020 8:52 AM FIELD MARKETING TEAM LEADER Plan of Treatment Health Maintenance Due Date Last Done Comments Annual Physical 1999 Hepatitis C 2014 DTaP, Tdap and Td Vaccines ( 1 - Tdap) 2015 Hepatitis B Vaccines (1 of 3 - 19+ 3-dose series) 2015 COVID-19 Vaccine (2023-2 5 season) 2025 Meningococcal Vaccine Aged Out 01/09/2010 No suasn rashi eligible based on patient's age to complete this topic HPV Vaccines Completed 08/24/2012, 04/30/2012, 02/27/2012 Meningococcal B Vaccine Aged Out No l onger eligible based on patient's age to complete this topic Pneumococcal Vaccine: Pediatrics (0 to 5 Years) and At-Risk Patients (6 to 49 Years) Aged Out No longer eligible b ased on patient's age to complete this topic RSV Immunizations Under 20 Months Aged Out No longer eligible b ased on patient's age to complete this topic Insurance [facility] Care Teams Stacker Driver Relationship Specialty Start Date End Date None, Provider, PCP - General 06/03/20
[2025-03-05 13:08] LABS: Free Testosterone (Direct) 10.3 pg/mL (9.3-26.5)
== END 2025-02-27 14:57 | disposition home or self-care (01) ==
LOC: ANHLAB 14:57
PROVIDERS: PCP Emergency Medicine; Visit Provider Emergency Medicine
DX: E34.9 Endocrine disorder, unspecified (principal)
CPT/HCPCS: 84402; 84403